=== PATIENT | female | born 1975 | race African-American/Black ===

== ENCOUNTER 2019-07-28 22:05 | Emergency (ER) | payer OTHER ==
[~2019-07-28] VITALS: Ht 172.7 cm; Wt 118.8 kg
--- OUTSIDE RECORDS SUMMARY | 2019-07-28 22:08 | XMS REPORT | Clinical Summary ---
Author Author [facility] Address Unknown Phone Unavailable Care Team Providers Care Security Trainer Name Role Phone Ganga Vicente MD PCP Allergies Comments Active Allergy Reactions Severity Noted Date Iodine And Iodide Shortness Of High 07/26/2019 Containing Products Breath Sulfa (Sulfonamide 07/26/2019 Antibiotics) Medications End Date Status Medication Sig Dispensed Refills Start Date Active amLODIPine (NORVASC) 5 MG Take 5 mg by 0 tablet mouth daily. Active hydroCHLOROthiazide Take 25 mg by 0 (HYDRODIURIL) 25 MG mouth daily. tablet Active carvedilol (COREG) 12.5 Take 12.5 mg 0 MG tablet by mouth 2 (two) times daily with breakfast and dinner. Active diflunisal (DOLOBID) 500 Take 1 tablet 20 tablet 0 07/26/201 mg Tab (500 mg 9 total) by mouth 2 (two) times daily as needed. Active Problems Not on file Encounters Care Team Description Date Type Specialty Felton Faria MD Lower abdominal pain (Primary Dx); Pelvic pain; Cyst of right ovary; Class 2 obesity due to excess calories without serious comorbidity with body mass index (BMI) of 39.0 to 39.9 in adult; Chronic anemia 07/26/2019 Emergency Emergency Medicine - 07/27/2019 after 07/27/2018 Social History Date Tobacco Use Types Packs/Day Years Used Never Smoker Smokeless Tobacco: Never Used Alcohol Use Drinks/Week oz/Week Comments No Alcohol Habits Answer Date Recorded How often do you have a drink containing alcohol? Never 07/26/2019 How many drinks containing alcohol do you have on Not asked a typical day when you are drinking? How often do you have six or more drinks on one Not asked occasion? Sex Assigned at Date Recorded Not on file Industry Job Start Date Occupation Not on file Not on file Not on file Travel End Travel History Travel Start No recent travel history available. Last Filed Vital Signs Time Taken Vital Sign Reading 07/26/2019 10:01 PM CDT Blood Pressure 145/83 07/26/2019 10:01 PM CDT Pulse 68 07/26/2019 8:10 PM CDT Temperature 37 C (98.6 F) 07/26/2019 8:10 PM CDT Respiratory Rate 18 07/26/2019 10:01 PM CDT Oxygen Saturation 97% - Inhaled Oxygen - Concentration 07/26/2019 8:10 PM CDT Weight 118.8 kg (262 lb) 07/26/2019 8:10 PM CDT Height 172.7 cm (5' 8") 07/26/2019 8:10 PM CDT Body Mass Index 39.84 Plan of Treatment Not on file Procedures Comments Procedure Name Priority Date/Time Associated Diagnosis CT ABDOMEN/PELVIS WITH IV STAT 07/26/2019 CONTRAST 11:05 PM CDT CBC W/PLT COUNT & AUTO STAT 07/26/2019 DIFFERENTIAL 9:32 PM CDT LIPASE STAT 07/26/2019 9:32 PM CDT COMPREHENSIVE METABOLIC STAT 07/26/2019 PANEL 9:32 PM CDT CBC W/PLT COUNT & AUTO STAT 07/26/2019 DIFFERENTIAL 9:32 PM CDT SCREEN, URINE STAT 07/26/2019 9:26 PM CDT URINALYSIS W/ MICROSCOPIC STAT 07/26/2019 9:26 PM CDT after 07/27/2018 Results * CT abdomen/pelvis with IV contrast (07/26/2019 11:05 PM CDT) Specimen Narrative Performed At FINAL REPORT [facility] CT, ABDOMEN \\T\\ PELVIS, WITH IV CONTRAST CLINICAL HISTORY: ABDOMINAL PAIN rlq abdominal pain TECHNIQUE: Multiple axial images of the abdomen and pelvis were performed after the uncomplicated administration of IV contrast. Coronal and sagittal reformats obtained. Oral contrast was not administered. This exam was performed according to our departmental dose-optimization program, which includes automated exposure control, adjustment of the mA and/or kV according to patient size and/or use of the iterative reconstruction technique. COMPARISON:None. FINDINGS: LOWER CHEST:No acute process. LIVER: No acute findings. BILIARY SYSTEM: Cholelithiasis with collapsed gallbladder. No intrahepatic or extrahepatic abnormal ductal dilatation. PANCREAS: Pancreatic head margins are indistinct with loss of peripancreatic fat plane. The remainder of the pancreas is normal in appearance with homogeneous attenuation and without abnormal ductal dilatation. SPLEEN: No acute findings. ADRENAL GLANDS: Unremarkable. KIDNEYS URETERS: No acute findings. GASTROINTESTINAL/MESENTERY: No bowel obstruction or abnormal wall thickening. No evidence of acute appendicitis. URINARY BLADDER: No acute findings. REPRODUCTIVE ORGANS: No acute findings. PERITONEUM/RETROPERITONEUM: No free air. Trace pelvic fluid. VESSELS: No acute findings. LYMPH NODES: No abdominal or pelvic lymphadenopathy. SOFT TISSUES: No acute findings. BONES: No suspicious osseous lesion. Other: None IMPRESSION: Cholelithiasis. Poorly visualized peripancreatic fat planes around the pancreatic head, possibly physiologic. However, early changes of acute pancreatitis could be considered in appropriate clinical setting. No evidence of acute appendicitis. Trace pelvic fluid, likely physiologic. Signed: Steffi Wooten MD Report Verified Date/Time:07/26/2019 23:24:16 Procedure Note Interface, External Ris In - 07/26/2019 11:[address]AL REPORT CT, ABDOMEN \\T\\ PELVIS, WITH IV CONTRAST CLINICAL HISTORY: ABDOMINAL PAIN rlq abdominal pain TECHNIQUE: Multiple axial images of the abdomen and pelvis were performed after the uncomplicated administration of IV contrast. Coronal and sagittal reformats obtained. Oral contrast was not administered. This exam was performed according to our departmental dose-optimization program, which includes automated exposure control, adjustment of the mA and/or kV according to patient size and/or use of the iterative reconstruction technique. COMPARISON:None. FINDINGS: LOWER CHEST:No acute process. LIVER: No acute findings. BILIARY SYSTEM: Cholelithiasis with collapsed gallbladder. No intrahepatic or extrahepatic abnormal ductal dilatation. PANCREAS: Pancreatic head margins are indistinct with loss of peripancreatic fat plane. The remainder of the pancreas is normal in appearance with homogeneous attenuation and without abnormal ductal dilatation. SPLEEN: No acute findings. ADRENAL GLANDS: Unremarkable. KIDNEYS URETERS: No acute findings. GASTROINTESTINAL/MESENTERY: No bowel obstruction or abnormal wall thickening. No evidence of acute appendicitis. URINARY BLADDER: No acute findings. REPRODUCTIVE ORGANS: No acute findings. PERITONEUM/RETROPERITONEUM: No free air. Trace pelvic fluid. VESSELS: No acute findings. LYMPH NODES: No abdominal or pelvic lymphadenopathy. SOFT TISSUES: No acute findings. BONES: No suspicious osseous lesion. Other: None IMPRESSION: Cholelithiasis. Poorly visualized peripancreatic fat planes around the pancreatic head, possibly physiologic. However, early changes of acute pancreatitis could be considered in appropriate clinical setting. No evidence of acute appendicitis. Trace pelvic fluid, likely physiologic. Signed: Steffi Wooten MD Report Verified Date/Time: 07/26/2019 23:24:16 Performing Organization Address City/State/Zipcode Phone Number [facility] * CBC with platelet count + automated diff (07/26/2019 9:32 PM CDT) WBC 10.3 (H) 4.0 - 10.0 K/L [facility] RBC 3.97 (L) 4.00 - 5.00 M/L [facility] Hemoglobin 12.0 12.0 - 15.5 GM/DL [facility] Hematocrit 35.5 (L) 36.0 - 46.0 % [facility] MCV 89.4 82.0 - 99.0 fL [facility] MCH 30.2 27.0 - 33.0 pg [facility] MCHC 33.8 32.0 - 36.0 GM/DL [facility] RDW 13.6 12.0 - 15.0 % [facility] Platelets 334 150 - 430 K/CU MM [facility] MPV 9.3 6.0 - 11.5 fL [facility] nRBC 0 0 - 0 /100 WBC [facility] % Neutros 61 % [facility] % Lymphs 29 % [facility] % Monos 6 % [facility] % Eos 2 % [facility] % Baso 1 % [facility] # Neutros 6.26 1.80 - 8.00 K/L [facility] # Lymphs 3.01 1.48 - 4.50 K/L [facility] # Monos 0.65 0.00 - 1.30 K/L [facility] # Eos 0.25 0.00 - 0.50 K/L [facility] # Baso 0.05 0.00 - 0.20 K/L [facility] Immature 0 0 - 0 % [facility] Granulocytes-Relative Specimen Blood Performing Organization Address [facility] Phone Number [facility] [place] [address] [facility] [place], [place] [address] * Lipase (07/26/2019 9:32 PM CDT) Lipase 4 (L) 6 - 51 U/L [facility] Specimen Blood Performing Organization Address [facility] Phone Number [facility] [place] [address] [facility] [place] [address] * Comprehensive metabolic panel (07/26/2019 9:32 PM CDT) Protein, Total 8.6 (H) 6.0 - 8.5 gm/dL [facility] Albumin 4.4 3.5 - 5.0 g/dL [facility] Alkaline Phosphatase 68 30 - 115 U/L [facility] Total Bilirubin 0.6 0.1 - 1.2 mg/dL [facility] Sodium 136 135 - 148 meq/L [facility] Potassium 3.3 (L) 3.6 - 5.5 meq/L [facility] Chloride 97 (L) 98 - 106 meq/L [facility] CO2 27 20 - 29 meq/L [facility] BUN 10 10 - 26 mg/dL [facility] Creatinine 0.77 0.50 - 1.20 mg/dL [facility] Glucose 87 70 - 110 mg/dL [facility] Calcium 9.2 8.5 - 10.5 mg/dL [facility] AST 19 5 - 40 U/L [facility] ALT 19 5 - 50 U/L [facility] EGFR 100Comment: ESTIMATED GFR IS mL/min/1.73 sq m [facility] NOT ACCURATE CREATININE CLEARANCE IN PREDICTING GLOMERULAR FILTRATION RATE. ESTIMATED GFR IS NOT APPLICABLE FOR DIALYSIS PATIENTS. Specimen Blood Performing Organization Address City[facility] Phone Number [facility] [address] [place] [address] * screen, urine (07/26/2019 9:26 PM CDT) Preg Test, Ur Negative [facility] Specimen Urine Performing Organization Address City/[facility] Phone Number [facility] [address] [place] [address] * Urinalysis w/Microscopic (07/26/2019 9:26 PM CDT) Color, UA Yellow [facility] Clarity, UA Clear [facility] Specific [place], UA 1.010 1.001 - 1.035 [facility] pH, UA 7.0 5.0 - 8.0 [facility] Protein, UA Negative Negative [facility] Glucose, UA Negative Negative [facility] Ketones, UA Negative Negative [facility] Bilirubin, UA Negative Negative [facility] Blood, UA Negative Negative [facility] Nitrite, UA Negative Negative [facility] Leukocytes, UA Negative Negative [facility] Urobilinogen, UA 0.2 0.2 - 1.0 mg/dL [facility] Bacteria, UA Few [facility] RBC, UA <5 /HPF [facility] WBC, UA <5 /HPF [facility] SQUAMOUS EPITHELIAL <5 /HPF [facility] Specimen Source [facility] Specimen Urine Performing Organization Address City/[facility] Phone Number [facility] [address] [place] [address] after 07/27/2018 Insurance Payer Benefit Subscriber ID Type Phone Address Plan / Group [facility] xxxxxxxxx CARE CHARTER
--- OUTSIDE RECORDS SUMMARY | 2019-07-28 22:08 | XMS REPORT ---
Author Author [facility] Address Unknown Phone Unavailable Care Team Providers Care Receiving Coordinator Name Role Phone KOFI PAINTER Unavailable Unavailable Problems This patient has no known problems. Allergies, Adverse Reactions, Alerts This patient has no known allergies or adverse reactions. Medications This patient has no known medications. Results Test Description Test Time Test Comments Text Results Atomic Results Result Comments CT, ABDOMEN 2019-07-26 23:24:00 Reason for exam:->ABDOMINAL PAINIs the patient ?->NoWhat is the patient's sedation requirement?->No Sedation FINAL REPORT CT, ABDOMEN \T\ PELVIS, WITH IV CONTRAST CLINICAL HISTORY: ABDOMINAL PAINrlq abdominal pain TECHNIQUE: Multiple axial images of the abdomen and pelvis were performed after the uncomplicated administration of IV contrast. Coronal and sagittal reformats obtained. Oral contrast was not administered. This exam was performed according to our departmental dose-optimization program, which includes automated exposure control, adjustment of the mA and/or kV according to patient size and/or use of the iterative reconstruction technique. COMPARISON:None. FINDINGS:LOWER CHEST:No acute process. LIVER: No acute findings.BILIARY SYSTEM: Cholelithiasis with collapsed gallbladder. No intrahepatic or extrahepatic abnormal ductal dilatation.PANCREAS: Pancreatic head margins are indistinct with loss of peripancreatic fat plane. The remainder of the pancreas is normal in appearance with homogeneous attenuation and without abnormal ductal dilatation. SPLEEN: No acute findings.ADRENAL GLANDS: Unremarkable.KIDNEYS URETERS: No acute findings. GASTROINTESTINAL/MESENTERY: No bowel obstruction or abnormal wall thickening. No evidence of acute appendicitis. URINARY BLADDER: No acute findings.REPRODUCTIVE ORGANS: No acute findings. PERITONEUM/RETROPERITONEUM: No free air. Trace pelvic fluid. VESSELS: No acute findings. LYMPH NODES: No abdominal or pelvic lymphadenopathy.SOFT TISSUES: No acute findings.BONES: No suspicious osseous lesion. Other: None IMPRESSION:Cholelithiasis. Poorly visualized peripancreatic fat planes around the pancreatic head, possibly physiologic. However, early changes of acute pancreatitis could be considered in appropriate clinical setting. No evidence of acute appendicitis. Trace pelvic fluid, likely physiologic. Signed: Jarvis Wooten MDReport Verified Date/Time: 07/26/2019 23:24:16 SE 2019-07-26 22:18:00 LIPASE (BEAKER) (test juld=587) 4 U/L 6-51 COMPREHENSIVE METABOLIC [id number] 22:18:00* Test Item Value Reference Range Comments TOTAL PROTEIN (BEAKER) (test liuq=140) 8.6 gm/dL 6.0-8.5 ALBUMIN (BEAKER) (test mxkw=2872) 4.4 g/dL 3.5-5.0 ALKALINE PHOSPHATASE (BEAKER) (test esrg=534) 68 U/L 30-115 BILIRUBIN TOTAL (BEAKER) (test vnei=523) 0.6 mg/dL 0.1-1.2 SODIUM (BEAKER) (test uexx=230) 136 meq/L 135-148 POTASSIUM (BEAKER) (test dtwg=221) 3.3 meq/L 3.6-5.5 CHLORIDE (BEAKER) (test hwnk=223) 97 meq/L 98-106 CO2 (BEAKER) (test rmgi=725) 27 meq/L 20-29 BLOOD UREA NITROGEN (BEAKER) (test plyv=537) 10 mg/dL 10-26 CREATININE (BEAKER) (test rrzt=907) 0.77 mg/dL 0.50-1.20 GLUCOSE RANDOM (BEAKER) (test fsyh=419) 87 mg/dL 70-110 CALCIUM (BEAKER) (test wxzr=218) 9.2 mg/dL 8.5-10.5 AST (SGOT) (BEAKER) (test ogxo=381) 19 U/L 5-40 ALT (SGPT) (BEAKER) (test ofht=192) 19 U/L 5-50 EGFR (BEAKER) (test vprb=8416) 100 mL/min/1.73 sq m ESTIMATED GFR IS NOT ACCURATE CREATININE CLEARANCE IN PREDICTING GLOMERULAR FILTRATION RATE. ESTIMATED GFR IS NOT APPLICABLE FOR DIALYSIS PATIENTS. CBC W/PLT COUNT & AUTO [id number] 21:57:00* Test Item Value Reference Range Comments WHITE BLOOD CELL COUNT (BEAKER) (test pbjt=241) 10.3 K/ L 4.0-10.0 RED BLOOD CELL COUNT (BEAKER) (test bvbh=603) 3.97 M/ L 4.00-5.00 HEMOGLOBIN (BEAKER) (test pphl=591) 12.0 GM/DL 12.0-15.5 HEMATOCRIT (BEAKER) (test ggpv=122) 35.5 % 36.0-46.0 MEAN CORPUSCULAR VOLUME (BEAKER) (test tvli=889) 89.4 fL 82.0-99.0 MEAN CORPUSCULAR HEMOGLOBIN (BEAKER) (test rxuw=665) 30.2 pg 27.0-33.0 MEAN CORPUSCULAR HEMOGLOBIN CONC (BEAKER) (test owao=518) 33.8 GM/DL 32.0-36.0 RED CELL DISTRIBUTION WIDTH (BEAKER) (test xmbz=310) 13.6 % 12.0-15.0 PLATELET COUNT (BEAKER) (test vbck=425) 334 K/CU MM 150-430 MEAN PLATELET VOLUME (BEAKER) (test ftbz=826) 9.3 fL 6.0-11.5 NUCLEATED RED BLOOD CELLS (BEAKER) (test yzut=761) 0 /100 WBC 0-0 NEUTROPHILS RELATIVE PERCENT (BEAKER) (test opao=414) 61 % LYMPHOCYTES RELATIVE PERCENT (BEAKER) (test dzqk=899) 29 % MONOCYTES RELATIVE PERCENT (BEAKER) (test qxcv=206) 6 % EOSINOPHILS RELATIVE PERCENT (BEAKER) (test wvqr=556) 2 % BASOPHILS RELATIVE PERCENT (BEAKER) (test uvxv=232) 1 % NEUTROPHILS ABSOLUTE COUNT (BEAKER) (test xjfq=550) 6.26 K/ L 1.80-8.00 LYMPHOCYTES ABSOLUTE COUNT (BEAKER) (test wqmk=972) 3.01 K/ L 1.48-4.50 MONOCYTES ABSOLUTE COUNT (BEAKER) (test echt=833) 0.65 K/ L 0.00-1.30 EOSINOPHILS ABSOLUTE COUNT (BEAKER) (test ddvb=801) 0.25 K/ L 0.00-0.50 BASOPHILS ABSOLUTE COUNT (BEAKER) (test eqev=204) 0.05 K/ L 0.00-0.20 IMMATURE GRANULOCYTES-RELATIVE PERCENT (BEAKER) (test vpvr=7552) 0 % 0-0 SCREEN, [id number] 21:48:00* Test Item Value Reference Range Comments TEST URINE (BEAKER) (test lxiv=430) Negative URINALYSIS W/ [id number] 21:47:00* Test Item Value Reference Range Comments COLOR (BEAKER) (test qgau=296) Yellow CLARITY (BEAKER) (test kdgz=825) Clear SPECIFIC GRAVITY UA (BEAKER) (test kudo=827) 1.010 1.001-1.035 PH UA (BEAKER) (test stzm=506) 7.0 5.0-8.0 PROTEIN UA (BEAKER) (test czyf=523) Negative Negative GLUCOSE UA (BEAKER) (test eraf=918) Negative Negative KETONES UA (BEAKER) (test dsuh=932) Negative Negative BILIRUBIN UA (BEAKER) (test olfv=752) Negative Negative BLOOD UA (BEAKER) (test omaz=836) Negative Negative NITRITE UA (BEAKER) (test nqsw=401) Negative Negative LEUKOCYTE ESTERASE UA (BEAKER) (test hddz=575) Negative Negative UROBILINOGEN UA (BEAKER) (test kjir=966) 0.2 mg/dL 0.2-1.0 BACTERIA (BEAKER) (test viem=816) Few RBC UA-MANUAL (BEAKER) (test ycga=7761) <5 /HPF WBC UA-MANUAL (BEAKER) (test ywqu=8555) <5 /HPF SQUAMOUS EPITHELIAL MANUAL (BEAKER) (test qfgx=4055) <5 /HPF SOURCE(BEAKER) (test aobk=1481)
[2019-07-28] MEDS ORDERED: KETOROLAC TROMETHAMINE 30 MG/ML VIAL IV STA (22:32)
--- NOTE | 2019-07-28 23:40 | NUR ---
PT PLACED IN GOWN, US AT BEDSIDE
--- NOTE | 2019-07-29 00:38 | Diagnostic Imaging Report ---
EXAM: EXAM: Transabdominal and Transvaginal Pelvic Ultrasound INDICATION: ^[id number] ^[id number] COMPARISON: None TECHNIQUE: Grayscale transverse and sagittal transabdominal images were obtained of the pelvis. CLINICAL HISTORY: 44 year old A0; last menstrual period: 12/11/2017. FINDINGS: Uterus Orientation: Normal Size: 9.5 x 3.7 x 4.3 cm, Normal Mass: None Cervix: Normal Endometrium: Not clearly visualized. Right ovary: Size: 5.1 x 2.3 x 2.5 cm Mass/Cyst: None Left ovary: Not visualized. Adnexa: Normal Cul-de-sac: No free fluid IMPRESSION: Limited transabdominal ultrasound of the pelvis. Left ovary and endometrium are not visualized, limiting evaluation. No large right ovarian cyst visualized. Signed by: Dr. Sohan Turner MD on 07/29/2019 12:35 AM
[2019-07-29] MEDS ORDERED: POTASSIUM CHLORIDE 20 MEQ TAB CR PO ONE ×2 (01:02→01:03)
[2019-07-29] MEDS ORDERED: POTASSIUM CHLORIDE 10MEQ/100ML 100 ML ONE (01:08)
[2019-07-29] MEDS ORDERED: DIATRIZOATE MEGL/DIATRIZOA SOD 30 ML BTL PO ONE (01:08)
[2019-07-29] MEDS ORDERED: SODIUM CHLORIDE 0.9% 1000ML 1,000 ML ONE (01:09)
[2019-07-29] MEDS ORDERED: POTASSIUM CHLORIDE 10MEQ/100ML 1,000 ML IV ONE (01:15)
--- NOTE | 2019-07-29 04:05 | Diagnostic Imaging Report ---
EXAM: CT Abdomen and Pelvis WITHOUT contrast INDICATION: Pelvic pain ^[id number] ^[id number] COMPARISON: Pelvic ultrasound dated 07/28/2019 TECHNIQUE: Abdomen and pelvis were scanned utilizing a multidetector helical scanner from the lung base to the pubic symphysis without administration of IV contrast. Absence of intravenous contrast decreases sensitivity for detection of focal lesions and vascular pathology. Coronal and sagittal reformations were obtained. Routine protocol was performed. IV CONTRAST: None ORAL CONTRAST: Gastrografin COMPLICATIONS: None RADIATION DOSE: Total DLP: 1484.4 mGy*cm Estimated effective dose: (DLP x 0.015 x size factor) mSv CTDIvol has been reviewed. It is below the limits set by the Radiation Protocol Committee (RPC). FINDINGS: LINES and TUBES: None. LOWER THORAX: Unremarkable HEPATOBILIARY: Unenhanced liver is unremarkable. No biliary ductal dilation. GALLBLADDER: Cholelithiasis No wall thickening. SPLEEN: No splenomegaly. PANCREAS: No focal masses or ductal dilatation. ADRENALS: No adrenal nodules KIDNEYS/URETERS: No hydronephrosis. Limited for evaluation of renal parenchyma without intravenous contrast. No stones. GI TRACT: No abnormal distention, wall thickening, or evidence of bowel obstruction. Appendix is normal. PELVIC ORGANS/BLADDER: Unremarkable. LYMPH NODES: No lymphadenopathy. VESSELS: Unremarkable. PERITONEUM / RETROPERITONEUM: No free air or fluid. BONES: Unremarkable. SOFT TISSUES: Unremarkable. IMPRESSION: No definite evidence of acute inflammatory process in the abdomen/pelvis, considering limitations of unenhanced study. Cholelithiasis without CT evidence of cholecystitis. Signed by: Dr. Sohan Turner MD on 07/29/2019 4:02 AM
[2019-07-29 04:19] VITALS: BP 129/81
== END 2019-07-29 04:34 | disposition home or self-care (01) ==
LOC: FSED 22:05
DX: R10.30 Lower abdominal pain, unspecified (principal); K80.20 Calculus of gallbladder without cholecystitis without obstruction; K52.9 Noninfective gastroenteritis and colitis, unspecified; E87.6 Hypokalemia
CPT/HCPCS: 74176; 76856; 80053; 81003; 81025; 85025; 93005; 96374; 99284; J1885; J3480; J7030